=== PATIENT | male | born 1935 | race Caucasian/White ===

== ENCOUNTER 2024-02-25 23:44 | Observation (INO) | payer MEDICARE, OTHER, SELFPAY ==
[2024-02-26 00:04] VITALS: BMI 30.1
[2024-02-26 01:25] VITALS: BP 131/58; PULSE 61; RESP 20; TEMP 35.9; O2SAT 95
--- NOTE | 2024-02-26 02:53 | P.HP_ITS ---
History of Present Illness History of Present Illness Date Patient Seen: 02/26/24 Time Patient Seen: 02:00 Chief complaint: Hyperkalemia Narrative: 88 y/o with PMH of PAF, HFpEF, HTN, HLD, DM, CKD3a, seen in the ED of [facility] at [place] with palpitations. He did not complain on chest pain or pressure, dizziness, nausea, sweating. Found to be hyperkalemic - 6.1, tachycardic, hypotensive, hemodinamically unstable and was cardioverted with 200 J synchronized CV on first attempt and had treatment with Ca, insulin, Glc, Lokelma and IVFs for hyperkalemia. Accepted for direct admission to [facility] for observation on telemetry after cardioversion and with hyperkalemia. [facility] Medical History (Updated 02/26/24 @ 04:00 by Forrest Jeffrey MD) CKD stage 3a, GFR 45-59 ml/min Diabetes mellitus (HFpEF) heart failure with preserved ejection fraction History of stroke without residual deficits HLD (hyperlipidemia) HTN (hypertension) PAF (paroxysmal atrial fibrillation) Social History Smoking Status: Never smoker alcohol intake: never Meds Home Medications and Allergies Home Medications Medication Instructions Recorded Confirmed Type amlodipine 5 mg tablet 5 mg PO DAILY 02/26/24 02/26/24 History apixaban 5 mg tablet (Eliquis) 5 mg PO BID 02/26/24 02/26/24 History empagliflozin 10 mg tablet 10 mg PO DAILY 02/26/24 02/26/24 History (Jardiance) lisinopril 20 mg tablet 20 mg PO BID 02/26/24 02/26/24 History lovastatin 20 mg tablet 20 mg PO QPM 02/26/24 02/26/24 History metformin 1,000 mg tablet 500 mg PO BID 02/26/24 02/26/24 History metoprolol succinate 25 mg 25 mg PO BID 02/26/24 02/26/24 History tablet,extended release 24 hr spironolactone 25 mg tablet 12.5 mg PO 3XW 02/26/24 02/26/24 History Allergies Allergy/AdvReac Type Severity Reaction Status Date / Time INGREDIENT: NKDA - NO KNOWN Allergy Unknown Uncoded 10/23/17 11:57 DRUG ALLERGIES Review of Systems Constitutional Comments: w/o fever Cardiovascular Comments: palpitations Respiratory Comments: w/o shortness of breath or cough Neurologic Comments: w/o focal weakness or numbness Exam Vital Signs (past 8 hours): - 02/26/24 02:24 Oxygen Delivery Method Room Air Oxygen Delivery Method Room Air Const Other: in no distress, laying in bed HENMT Other: normocephalic Neck Other: supple, w/o swelling Resp Other: normal respiratory effort Cardio Other: RRR GI Other: not distended Skin Other: w/o rashes Neuro Other: w/o acute weakness or numbness Extrem Other: w/o swelling Assessment & Plan Assessment and plan (1) Hyperkalemia: Status: Acute (2) PAF (paroxysmal atrial fibrillation): Status: Acute (3) CKD stage 3a, GFR 45-59 ml/min: Status: Acute (4) HTN (hypertension): Status: Acute (5) HLD (hyperlipidemia): Status: Acute (6) History of stroke without residual deficits: Status: Acute (7) (HFpEF) heart failure with preserved ejection fraction: Status: Acute (8) Diabetes mellitus: Status: Acute Assessment & Plan narrative: PAF / RVR - cardioverted - w/o evidence of ACS - on BB, increased dose of home Toprol XL from 25 mg bid to 37.5 mg bid - continued Eliquis - echocardiogram if available - telemetry monitoring - if stable he can discharge home today Hyperkalemia - 6.1 initially, down to 5.7 at the time of transfer to [place] - held home spironolactone - treated with insulin, glucose, Lokelma, IVFs and Ca in outside ED - BMP this AM - telemetry monitoring - with improved level he can DC home off Aldactone as there is no KEYA CKD stage 3A - at baseline NIDDM - metformin, Jardiance, CCD, SS HTN, HFpEF - Lisinopril 20 mg bid, increased BB, Held home Norvasc 5 mg daily - held spironolactone HLD, 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
[2024-02-26] MEDS: SODIUM CHLORIDE 0.9% 1,000 ML 100 ML IV (03:38)
[2024-02-26 05:05] LABS: BUN Creatinine Ratio 33.6 (6-22); Blood Urea Nitrogen 40 mg/dL (9-20); Calcium 8.7 mg/dL (8.4-10.2); Carbon Dioxide 17 mmol/L (22-32); Chloride 115 mmol/L (98-107); Estimated Glomerular Filt Rate 59 mL/min (>60); Glucose 103 mg/dL (80-110); HEMOLYSIS < 15 (0-50); Sodium 140 mmol/L (137-145)
[2024-02-26] MEDS: METFORMIN HCL 500 MG TABLET PO (08:31)
[2024-02-26] MEDS: lisinopriL 20 MG TABLET PO (08:31)
[2024-02-26] MEDS: APIXABAN 5 MG TABLET PO (08:31)
[2024-02-26 08:33] VITALS: BP 127/56
[2024-02-26] MEDS: METOPROLOL ER 25 MG TABLET 37.5 MG PO (08:33)
--- NOTE | 2024-02-26 09:32 | PM.DS.1 ---
History of Present Illness History of Present Illness Date Patient Seen: 02/26/24 Time Patient Seen: 09:33 Chief complaint: Hyperkalemia Narrative: Per overnight admitting provider, 88 y/o with PMH of PAF, HFpEF, HTN, HLD, DM, CKD3a, seen in the ED of [facility] at [place] with palpitations. He did not complain on chest pain or pressure, dizziness, nausea, sweating. Found to be hyperkalemic - 6.1, tachycardic, hypotensive, hemodinamically unstable and was cardioverted with 200 J synchronized CV on first attempt and had treatment with Ca, insulin, Glc, Lokelma and IVFs for hyperkalemia. Accepted for direct admission to [facility] for observation on telemetry after cardioversion and with hyperkalemia. Discharge Providers Provider Date of admission: 02/25/24 23:44 Discharge Date: 02/26/24 Primary care physician: Sabina Wolff MD Discharge provider: Arturo Miller DO Summary Hospital Course Discharge Diagnosis: (1) Hyperkalemia: Status: Acute (2) PAF (paroxysmal atrial fibrillation) with RVRkyperkal Status: Acute (3) CKD stage 3a, GFR 45-59 ml/min: Status: Acute (4) HTN (hypertension): Status: Acute (5) HLD (hyperlipidemia): Status: Acute (6) History of stroke without residual deficits: Status: Acute (7) (HFpEF) heart failure with preserved ejection fraction: Status: Acute (8) Diabetes mellitus: Status: Acute Hospital Course: This is an 88 year old male with PMH of CKD stage 3, NIDDM, HTN, HFpEF, HLD, prior CVA, paroxysmal afib who presented to an outside hospital ER with palpitations in the setting of PCP visit showing hyperkalemia. K was 6.1, patient failed 3 doses of IV metoprolol for rapid afib and was cardioverted in outside ER successfully. He was given calcium, insulin, dextrose and lokelma. Repeat K was 5.7, but was hemolyzed. There were no available beds for observation at outside hospital, accepted here for observation for hyperkalemia. Repeat potassium was 5.0 here. Also noted was a mild metabolic acidosis with bicarb of 17. He reports recently he has been doing ping pong 3x per week at a senior center and that it has been hot inside due to low AC output. He also reports a high potassium diet. He is also on aldactone, lisinopril. In review of his outpatient lab work, potassium has been slowly increasing. Patient felt well and wished to discharge home, given his improvement and no recurrence of afib this was deemed reasonable. His aldactone was held. Recommend repeat lab evaluation later this week with PCP and close follow up. Alternative options include reducing lisinopril dosing amongst others moving forward. His bicarb is also a bit low, but this appears to be recent based on review of his outpatient labs but if persistent addition of bicarb tabs can be considered. His home metoprolol was increased in the setting of his presenting RVR. Time Spent with Patient Time spent: Greater than 30 minutes Exam Vital Signs (past 8 hours): - 02/26/24 02:24 02/26/24 08:33 Blood Pressure 127/56 L Oxygen Delivery Method Room Air Oxygen Delivery Method Room Air Narrative Exam Narrative: Gen: WDWN, NAD CV: RRR no m/r/g Pulm: CTA b/l Abd: S NT ND Ext: no edema Objective Labs 02/26/24 04:34 Labs: Laboratory Results - last 24 hr 02/26/24 04:34 Sodium 140 Potassium 5.0 Chloride 115 H Carbon Dioxide 17 L BUN 40 H Creatinine 1.19 Estimated GFR 59 L BUN/Creatinine Ratio 33.6 H Glucose 103 Calcium 8.7 Magnesium 2.0 [facility] Medical History (Updated 02/26/24 @ 04:00 by Forrest Jeffrey MD) CKD stage 3a, GFR 45-59 ml/min Diabetes mellitus (HFpEF) heart failure with preserved ejection fraction History of stroke without residual deficits HLD (hyperlipidemia) HTN (hypertension) PAF (paroxysmal atrial fibrillation) Social History household members: spouse Smoking Status: Never smoker alcohol intake: never Discharge Plan Discharge Plan Patient Disposition: Home Provider Discharge Comment: You were admitted to the hospital after a fast heart rate and elevated potassium level. This potassium level improved. Some medication adjustments were made. Please stop spironolactone. Metoprolol increased to 37.5 mg BID. You were likely a bit dehydrated as well leading to elevated potassium though I would discuss ongoing medications with cardiology and primary care as over time it does appear that your potassium level has increased in looking at your recent labs. Discharge orders & Medications Prescriptions: Continued lisinopril 20 mg tablet 20 mg PO BID amlodipine 5 mg tablet 5 mg PO DAILY metformin 1,000 mg tablet 500 mg PO BID lovastatin 20 mg tablet 20 mg PO QPM Eliquis 5 mg tablet 5 mg PO BID Jardiance 10 mg tablet 10 mg PO DAILY Changed metoprolol succinate 25 mg tablet extended release 24 hr 37.5 mg PO BID 30 Days Qty: 90 0RF Discontinued spironolactone 25 mg tablet 12.5 mg PO 3XW Rx Instructions: 1/2 tab every -- Follow up/Referrals: Sabina Wolff MD [Primary Care Provider] - Diet/Activity/Treatments Diet: Diet as Tolerated and Low-protein/Renal Activity: As tolerated, no restrictions Visit Report/Discharge Packet Instructions: DI for Cardioversion, DI for Hyperkalemia Stand Alone Forms: Congestive Heart Failure, Patient Portal/API, Stroke Signs & Symptoms Discharge Data Primary Care Provider: Sabina Wolff Attending Provider: Forrest Starr Admit Date/Time: 02/25/24 23:44
[2024-02-26 10:22] VITALS: BP 127/56; PULSE 63; RESP 18; TEMP 35.7; O2SAT 96
--- NOTE | 2024-02-26 12:48 | PC.NURSE ---
Pt is dressed and ready for discharge home-he will be taking a taxi to the airport and then has booked a flight to [place]. Went over d/c instructions with Pt-discussed d/c meds-continued current meds, dose change of metoprolol and stopping spironolactone as well as last dose taken. Reviewed stroke education, CHF guidelines sheet, hyperkalemia, and follow up with his PCP as soon as able. Pt denied further questions and was taken out via w/c by [employer] to taxi with all belongings.
--- NOTE | 2024-02-26 13:06 | CM.DANOTE ---
Discharge Planning/Care Management CM Discharge Assessment Start: 02/26/24 13:02 Freq: Status: Active Protocol: Document 02/26/24 13:02 TRISTA (Rec: 02/26/24 13:06 TRISTA [id number]) Discharge Planning Assessment Assigned [employer] VISHNU Mcgowan DPOA/Assigned Designee Name Carmen Mcdonough, spouse Contact Information [phone] Advance Directives? No History Provided By Patient,Medical Record Prior Living Arrangements House Household Members spouse Type of transporation used prior to Drives own vehicle admit Independent with ADL's Yes Is patient alert and oriented? Yes Barriers to Discharge No Comment Patient was a direct transfer from [facility] and discharged home today after additional work up and medical clearance. Patient back to functional baseline and booked a taxi and flight back home to [facility]. No needs identified from this CM team. Discharge Plan Home Transportation Arrangement Taxi, flight home. Referrals Initiated None needed
== END 2024-02-26 12:51 | disposition home or self-care (01) ==
PROVIDERS: Admitting Provider Internal Medicine; PCP Family Medicine; Referring Provider Internal Medicine; Visit Provider Internal Medicine
DX: E87.5 Hyperkalemia (principal); Z86.73 Personal history of transient ischemic attack (TIA), and cerebral infarction without residual deficits; E78.5 Hyperlipidemia, unspecified; I48.0 Paroxysmal atrial fibrillation; I13.0 Hypertensive heart and chronic kidney disease with heart failure and stage 1 through stage 4 chronic kidney disease, or unspecified chronic kidney disease; I50.30 Unspecified diastolic (congestive) heart failure; N18.31 Chronic kidney disease, stage 3a; E11.22 Type 2 diabetes mellitus with diabetic chronic kidney disease; Z79.84 Long term (current) use of oral hypoglycemic drugs
CPT/HCPCS: 36415; 80048; 83735; G0378; G0379